=== PATIENT | female | born 1965 | race Caucasian/White ===

== ENCOUNTER 2017-07-06 14:24 | Emergency (ER) | payer OTHER ==
[~2017-07-06] VITALS: Ht 157.5 cm; Wt 70.2 kg
[2017-07-06 14:39] VITALS: Ht 157.5 cm; Wt 70.2 kg
[2017-07-06] MEDS ORDERED: LIDOCAINE 1% (MDV) 20 ML INJ SC ONE (16:00)
[2017-07-06] MEDS ORDERED: IBUP-1542 PO (16:59)
--- NOTE | 2017-07-06 17:55 | ERD ---
ER Documentation Chief Complaint Chief Complaint pt bib family with c/o right thumb lac HPI 51-year-old female presented ED with laceration of her right hand. Patient stated that she was washing glass teapot at home, that he broke and cut her hand. The bleeding has been minimal. She had Tdap done 3 years ago. Patient is right-hand dominant. Denies any medical history. Denies any other injuries. ROS All systems reviewed and are negative except as per history of present illness. Medications Home Meds Active Scripts Ibuprofen* (Motrin*) 600 Mg Tab, 600 MG PO Q6H Y for PAIN AND OR ELEVATED TEMP, #30 TAB Prov:JERRELL BRODERICK. WRITING MANAGER 07/06/17 Allergies Allergies: Coded Allergies: No Known Allergy (Unverified , 09/24/13) PMhx/Soc Medical and Surgical Hx: pt denies Medical Hx, pt denies Surgical Hx Hx Alcohol Use: No Hx Substance Use: No Hx Tobacco Use: No Smoking Status: Never smoker Physical Exam Vitals Vital Signs Date Time Temp Pulse Resp B/P Pulse Ox O2 Delivery O2 Flow Rate FiO2 07/06/17 14:39 97.3 72 20 109/51 100 Physical Exam General: Well-developed, well-nourished, conscious and coherent, in no distress Skin: Warm and dry without rash, good texture and turgor Head: Normocephalic without evidence of trauma Eyes: Sclera and conjunctivae normal; pupils equal, round, and reactive to light; extraocular movements are intact Chest: Normal AP diameter. Good expansion without retractions. Nontender. Lungs are clear to auscultate bilaterally with good tidal volume Heart: Regular rate and rhythm. No murmur, rub, or gallops heard Extremities: A 3 cm laceration noted at the base of the right thumb, in the webbing space between the thumb and index finger. No active bleeding. Full range of motion. Good strength bilaterally. No clubbing, cyanosis, or edema. Peripheral pulses are intact. Sensation intact Neuro: Alert and oriented 4, GCS 15. Cranial nerves grossly intact. Motor and sensory exams nonfocal. Moves all extremities. Speech clear. Gait normal Results 24 hrs Current Medications Medications (Trade) Dose Ordered Sig/Raheel Route PRN Reason Start Time Stop Time Status Last Admin Dose Admin Lidocaine (Xylocaine 1% (Mdv) 20 ml) 20 ml ONCE ONCE SC 07/06/17 16:00 07/06/17 16:01 DC Procedures/MDM Procedure note: laceration repair Verbal consent was obtained for the laceration repair. The wound was copiously irrigated. Local anesthesia was provided using percent lidocaine. After appropriate anesthesia, the area was explored under a bloodless field. Full range of motion of the joint above and below the injury was noted. No foreign body, deep structure or tendon involvement was noted. Closure was achieved with 4 interrupted sutures using 4-0 Ethilon. Good cosmetic and hemostatic results were obtained with the closure. The wound was then cleaned and a dressing was applied. She is tetanus is up-to-date, Tdap not given. Patient advised to follow-up in the ED in 2 days for wound check. Departure Diagnosis: Primary Impression: Laceration Condition: Stable Patient Instructions: Laceration, Hand Referrals: CHRISTIANO MOLINA (PCP) Additional Instructions: Return to this facility in 2 DAYS for a follow-up exam.Return sooner if your condition worsens. Follow up with your physician to remove the stitches:For Face wounds 5-7 days.For Elsewhere on the body 7-10 days. JERRELL BRODERICK NP Jul 06, 2017 17:55
== END 2017-07-06 17:05 | disposition home or self-care (01) ==
LOC: FTE 14:24
DX: S61.011A Laceration without foreign body of right thumb without damage to nail, initial encounter (principal); W25.XXXA Contact with sharp glass, initial encounter; Y92.9 Unspecified place or not applicable
CPT/HCPCS: 12002; Z7502; Z7610

== ENCOUNTER 2017-07-11 17:27 | Emergency (ER) | payer OTHER ==
[~2017-07-11] VITALS: Wt 69.2 kg
[~2017-07-11 17:27] MED LIST: IBUP-1542 PO
--- NOTE | 2017-07-11 19:06 | ERD ---
ER Documentation Chief Complaint Chief Complaint HPI This 51-year-old female presented for removal of sutures from her hand from a laceration sustained a week ago. In the webspace of her thumb. She states that she has great mobility of her hand and does not have pain at the site. ROS All systems reviewed and are negative except as per history of present illness. Medications Home Meds Active Scripts Ibuprofen* (Motrin*) 600 Mg Tab, 600 MG PO Q6H Y for PAIN AND OR ELEVATED TEMP, #30 TAB Prov:JERRELL BRODERICK Radha OBJECTS CONSERVATOR 07/06/17 Allergies Allergies: Coded Allergies: No Known Allergy (Unverified , 09/24/13) PMhx/Soc Medical and Surgical Hx: pt denies Medical Hx, pt denies Surgical Hx Hx Alcohol Use: No Hx Substance Use: No Hx Tobacco Use: No Smoking Status: Never smoker Physical Exam Vitals Vital Signs Date Time Temp Pulse Resp B/P Pulse Ox O2 Delivery O2 Flow Rate FiO2 07/11/17 17:30 98.0 91 20 117/51 100 Physical Exam Const: [] No distress Ext: No cyanosis, or edema, well-healed laceration to web space of hand, [address] Neur: Awake and alert and oriented 3, great sensation to all fingers and palm. Capillary refill less than 1 second Psych: Normal Mood and Affect Procedures/MDM Suture removal note, webspace of right hand: 4 simple interrupted sutures recently removed using suture removal kit after wiping with alcohol. No dehiscence of wound. Patient taught procedure with no complications. Simple suture removal. Primary care follow-up in 2 3 days and return precautions. Departure Diagnosis: Primary Impression: Encounter for removal of sutures Condition: Stable Patient Instructions: Suture Removal, No Complication Referrals: CHRISTIANO MOLINA (PCP) Additional Instructions: Call your primary care doctor TOMORROW for an appointment during the next 2-3 days.See the doctor sooner or return here if your condition worsens before your appointment time. LIZA ARENAS DO Jul 11, 2017 19:06
== END 2017-07-11 19:10 | disposition home or self-care (01) ==
LOC: FTE 17:27
DX: Z48.02 Encounter for removal of sutures (principal)
CPT/HCPCS: 99281

== ENCOUNTER 2017-08-08 00:31 | Emergency (ER) | payer OTHER ==
[~2017-08-08] VITALS: Ht 162.6 cm; Wt 70.3 kg
[2017-08-08 00:35] VITALS: Ht 162.6 cm; Wt 70.3 kg
[2017-08-08] MEDS ORDERED: CEPH-443 PO (04:08)
[2017-08-08] MEDS ORDERED: IBUP-1542 PO (04:08)
--- NOTE | 2017-08-08 04:28 | ERD ---
ER Documentation Chief Complaint Chief Complaint laceration left wrist while cutting fruit HPI 51-year-old female presents here to emergency department for complaints of a left wrist/forearm laceration wound after accidentally cutting it while cutting up through the night. Patient's complaint of pain, sharp pain 4/10 scale, as was upon touching the area, bleeding has been controlled at this time. Patient does not have any difficulty movement of the left wrist. Patient did not take any medication for pain. Patient has up-to-date immunization for tetanus. ROS All systems reviewed and are negative except as per history of present illness. Medications Home Meds Active Scripts Ibuprofen* (Motrin*) 600 Mg Tab, 600 MG PO Q6H Y for PAIN AND OR ELEVATED TEMP, #30 TAB Prov:JAIME ESCOBAR PAINTER INTERIOR FINISH 08/08/17 Cephalexin* (Keflex*) 500 Mg Capsule, 500 MG PO QID for 5 Days, CAP Prov:JAIME ESCOBAR PAINTER INTERIOR FINISH 08/08/17 Ibuprofen* (Motrin*) 600 Mg Tab, 600 MG PO Q6H Y for PAIN AND OR ELEVATED TEMP, #30 TAB Prov:JERRELL BRODERICK PAINTER INTERIOR FINISH 07/06/17 Allergies Allergies: Coded Allergies: No Known Allergy (Unverified , 09/24/13) PMhx/Soc Last tetanus immunization was 4 years ago Medical and Surgical Hx: pt denies Medical Hx, pt denies Surgical Hx Hx Alcohol Use: No Hx Substance Use: No Hx Tobacco Use: No Smoking Status: Never smoker FmHx Family History: No coronary disease, No diabetes, No other Physical Exam Vitals Vital Signs Date Time Temp Pulse Resp B/P Pulse Ox O2 Delivery O2 Flow Rate FiO2 08/08/17 00:35 97.8 64 20 150/84 100 Physical Exam GENERAL: The patient is well developed and appropriate for usual state of health, in no apparent distress. CHEST: Clear to auscultation bilaterally. There are no rales, wheezes or rhonchi. HEART: Regular rate and rhythm. No murmurs, clicks, rubs or gallops. No S3 or S4. ABDOMEN: Soft, nontender and nondistended. Good bowel sounds. No rebound or guarding. No gross peritonitis. No gross organomegaly or masses. No Mak sign or McBurney point tenderness. BACK: No midline or flank tenderness. EXTREMITIES: Equal pulses bilaterally. There is no peripheral clubbing, cyanosis or edema. No focal swelling or erythema. Full range of motion. Grossly neurovascularly intact. NEURO: Alert and oriented. Cranial nerves 2-12 intact. Motor strength in all 4 extremities with 5/5 strength. Sensation grossly intact. Normal speech and gait. SKIN: 1 cm laceration wound, superficial noted in the left forearm, and the level of the left wrist area, is not in the joint area, no tendon involvement, involves only the epidermal and dermal layer. There is no apparent rash or petechia. The skin is warm and dry. HEMATOLOGIC AND LYMPHATIC: There is no evidence of excessive bruising or lymphedema. No gross cervical, axillary, or inguinal lymphadenopathy. Procedures/MDM Procedure Note: After obtaining informed consent, the wound was irrigated with 250 ml of normal saline and cleaned with diluted betadine and Steri-Strips. Using aseptic technique, the wound was approximated using a dermabond. After the procedure, the wound was well approximated. Patient tolerated procedure well. Medical decision making: Patient is a laceration when in the forearm which was easily approximated. No symptoms of any joint involvement, no tendon involvement. No foreign body noted on the affected area. Patient is up-to- date immunization for tetanus. Patient was given Keflex to prevent infection, ibuprofen for pain, was advised to do a wound check in 2 days, avoid wetting the area, keep the area dry for at least 7-10 days. Patient was advised to return to emergency department for any worsening symptoms. Disposition: Home. Stable Departure Diagnosis: Primary Impression: Forearm laceration Encounter type: initial encounter Laterality: left Qualified Code: S51.812A - Laceration of left forearm, initial encounter Condition: Stable Patient Instructions: Laceration, Extremity (Skin Glue) JAIME ESCOBAR NP Aug 08, 2017 04:28
== END 2017-08-08 04:51 | disposition home or self-care (01) ==
LOC: FTE 00:31
DX: S51.812A Laceration without foreign body of left forearm, initial encounter (principal); W26.8XXA Contact with other sharp object(s), not elsewhere classified, initial encounter; Y92.9 Unspecified place or not applicable
CPT/HCPCS: 12001; Z7502

== ENCOUNTER 2018-12-17 08:55 | Day surgery (SDC) | payer OTHER ==
[2018-12-14 17:34] VITALS: Ht 162.6 cm; Wt 63.5 kg
--- NOTE | 2018-12-16 17:34 | HP ---
DATE OF ADMISSION: 12/17/2018 HISTORY: A 53-year-old female patient with recurrent scalp masses seen in the office 06/2018, noted to have multiple inclusion cysts involving the scalp, now admitted to the hospital for elective surgi shreya excision. PAST MEDICAL HISTORY, ALLERGIES, MEDICAL CONDITIONS, DAILY MEDICATIONS, CLOTTING DISORDERS, FAMILY HI STORY, REVIEW OF SYSTEMS: Negative. PAST SURGICAL HISTORY: See HPI. HABITS: Alcohol, tobacco, recreational drugs: None. PHYSICAL EXAMINATION: GENERAL: Well-developed, well-nourished female patient in no acute distress. HEAD: Normocephalic. No masses or deformities. 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 Ears and tympanic membranes are normal. NOSE: Clear. OROPHARYNX: Clear. NECK: No masses or adenopathy. CHEST: Clear to P and A. HEART: Regular sinus rhythm without murmur. ABDOMEN: Soft, bowel sounds normal. No masses or megaly. EXTREMITIES: Full range of motion without deformity. NEUROLOGIC: Physiologic. PELVIC AND RECTAL: Not done. IMPRESSION: Scalp cystic lesions. RECOMMENDATIONS: Admit for surgery. Dictated By: INA BARKER MD SC/NTS Conf#: [id number] DID#: [id number]
[~2018-12-17] VITALS: Ht 162.6 cm; Wt 63.5 kg
[2018-12-17] VITALS (8 sets, daily range): BP systolic 103–135; BP diastolic 49–65; PULSE 48–70; RESP 14–24
[~2018-12-17 08:55] MED LIST changes: +CEPH-443 PO
--- NOTE | 2018-12-17 12:06 | PREAC ---
Date/Time of Note Date/Time of Note DATE: 12/17/18 TIME: 12:04 Anesthesia Eval and Record Evaluation Time Pre-Procedure Interview DATE: 12/17/18 TIME: 12:04 Age 53 Sex female NPO: 8 hrs Preoperative diagnosis multiple scalp lesions Planned procedure excision of multiple scalp lesions Past Medical History Past Medical History: None Surgery & Anesthesia Issues No known issue Meds Anticoagulation: No Beta Radha within 24 hr: No Reason Beta Radha not given: Pt. not on B-Radha Discontinued Scripts Ibuprofen* (Motrin*) 600 Mg Tab, 600 MG PO Q6H PRN for PAIN AND OR ELEVATED TEMP, #30 TAB Prov:JAIME ESCOBAR PUMP SERVICER HELPER 08/08/17 Cephalexin* (Keflex*) 500 Mg Capsule, 500 MG PO QID for 5 Days, CAP Prov:JAIME ESCOBAR PUMP SERVICER HELPER 08/08/17 Ibuprofen* (Motrin*) 600 Mg Tab, 600 MG PO Q6H PRN for PAIN AND OR ELEVATED TEMP, #30 TAB Prov:JERRELL BRODERICK PUMP SERVICER HELPER 07/06/17 Meds reviewed: Yes Allergies Coded Allergies: No Known Allergy (Unverified , 12/17/18) Allergies Reviewed: Yes Labs/Studies Labs Reviewed: Reviewed by anesthesiologist test: N/A Pre-procedure Exam Last vitals Vital Signs Date Temp Pulse Resp B/P (MAP) Pulse Ox O2 O2 Flow FiO2 Time Delivery Rate 12/17/18 97.8 68 20 110/58 100 Room Air 11:42 (75) Airway: Adequate mouth opening, Adequate thyromental dist Mallampati: Mallampati II Teeth: Normal Lung: Normal Heart: Normal ASA Physical Status ASA physical status: 1 Emergency: None Planned Anesthetic General/MAC: LMA Planned Pain Management Parenteral pain med Pre-operative Attestations Prior to commencing anesthesia and surgery, the patient was re-evaluated, there was verification of: *The patient's identity *The results of appropriate recent lab work and preoperative vital signs *The above evaluation not changing prior to induction *Anesthetic plan, risk benefits, alternative and complications discussed with patient/family; questions answered; patient/family understands, accepts and wishes to proceed. NATA BARTON Dec 17, 2018 12:06
[2018-12-17] MEDS ORDERED: FENTAnyl 50 MCG/ML VIAL ONE (12:10)
[2018-12-17] MEDS ORDERED: PROPOFOL 100 ML ONE (12:10)
[2018-12-17] MEDS ORDERED: LIDOCAINE 2% (SDV) 5 ML INJ ONE (12:11)
[2018-12-17] MEDS ORDERED: LIDOCAINE 1%/EPI (1:100,000) (MDV) 20 ML ONE (12:11)
[2018-12-17] MEDS ORDERED: ROCURONIUM 50 MG INJ ONE (12:41)
[2018-12-17] MEDS ORDERED: GLYCOPYRROLATE 0.4 MG INJ ONE (13:19)
[2018-12-17] MEDS ORDERED: NEOSTIGMINE 3 MG/3 ML SYRINGE ONE (13:19)
[2018-12-17] MEDS ORDERED: FENTAnyl 50 MCG/ML VIAL IV PRN ×3 (13:30)
[2018-12-17] MEDS ORDERED: KETOROLAC 30 MG INJ IV PRN (13:30)
[2018-12-17] MEDS ORDERED: hydrALAzine 20 MG INJ IV PRN (13:30)
[2018-12-17] MEDS ORDERED: ALBUTEROL 0.083% (NEB) 2.5 MG/3 ML AMP HHN PRN (13:30)
[2018-12-17] MEDS ORDERED: MEPERIDINE 25 MG INJ IV PRN (13:30)
[2018-12-17] MEDS ORDERED: ONDANSETRON 4 MG INJ IV PRN (13:30)
[2018-12-17] MEDS ORDERED: EPHEDrine SULFATE 50 MG/5 ML SYG IV PRN (13:30)
[2018-12-17] MEDS ORDERED: DIPHENHYDRAMINE 50 MG INJ IV PRN (13:30)
[2018-12-17] MEDS ORDERED: LABETALOL HCL 20MG INJ IV PRN (13:30)
[2018-12-17] MEDS ORDERED: METOCLOPRAMIDE 10 MG INJ IV PRN (13:30)
[2018-12-17] MEDS ORDERED: OXYCODONE/ACETAMINOPHEN (5/325) TAB PO PRN ×2 (13:30)
--- NOTE | 2018-12-17 13:32 | PAC ---
Date/Time of Note Date/Time of Note DATE: 12/17/18 TIME: 13:31 Post-Anesthesia Notes Post-Anesthesia Note Last documented vital signs Vital Signs Date Temp Pulse Resp B/P (MAP) Pulse Ox O2 O2 Flow FiO2 Time Delivery Rate 12/17/18 97.8 68 20 110/58 100 Room Air 1332 (75) Activity: WNL Respiratory function: WNL Cardiovascular function: WNL Mental status: Baseline Pain reasonably controlled: Yes Hydration appropriate: Yes Nausea/Vomiting absent: Yes NATA BARTON Dec 17, 2018 13:32
--- NOTE | 2018-12-17 13:38 | SIPON ---
Date/Time of Note Date/Time of Note DATE: 12/17/18 TIME: 13:36 Operative Report Preoperative Diagnosis multiple scalp tumors Postoperative Diagnosis same Operation/Procedure Performed exccisions scalp tumore wiith advance flap closure Surgeon carole signature line contact center assistant none Anesthesia: general Estimated blood loss: 0 - 10 ml's Transfusion Required none Specimen to path Grafts/Implants none Complications none INA BARKER MD Dec 17, 2018 13:37
--- NOTE | 2018-12-19 13:38 | OPR ---
DATE OF OPERATION: PREOPERATIVE DIAGNOSIS: Multiple scalp tumors. POSTOPERATIVE DIAGNOSIS: Multiple scalp tumors. PROCEDURE PERFORMED: Removal of multiple scalp tumors with advancement flap reconstruction. DESCRIPTION OF PROCEDURE: The patient was brought to the operating room under parenteral sedation, g eneral oroendotracheal anesthesia with the patient in the supine position. The area about 3 large cy stic lesions in the frontal scalp region were prepped and draped after shaving an appropriate amount of hair. There were 3 large lesions noted, the largest of which was approximately 2.2 cm, 2 cm and 1 .8 cm. The area about the cystic lesions was localized with Xylocaine 1% epinephrine 1:100,000 for l ocal anesthesia and hemostasis. These appeared to either be epidermoid inclusion cyst or possibly mu ltiple cystic lesions secondary to hair follicle growth. The area about the 1.8 cm lesion was outlin ed with methylene blue and elliptical surgical excision was carried out down to the pericranium. Ble eding points were electrocoagulated for hemostasis. A similar procedure was performed for removal of the 2 cm lesion. It was again outlined with methylene blue, incised and excised down to pericranium and removed from the operative field. Bleeding points were electrocoagulated for hemostasis. The l argest of the lesions was then outlined with methylene blue, incised and excised down to pericranium and removed. The first 2 excision sites were undermined and closed primarily with multiple 4-0 silk suture. The largest of the 3 lesions however required an advancement flap for closure. The area for advancement was widely undermined after instilling for the local anesthesia. Back cuts were made an d the advancement flap was undermined. Hemostasis was achieved with Bovie cautery. Small Burow's tr iangles were excised at the distal end of the advancement flap incisions for proper closure. The fla p was then advanced and secured in place with multiple 3-0 chromic sutures to the subcutaneous tissue and multiple 4-0 silk to the flap. The Burow's triangles were closed with multiple 5-0 silk suture. This completed the surgical procedure. The surgical field was dry. Light dressing was applied. T he patient was awakened and extubated in the operating room and returned to recovery in excellent con dition. ESTIMATED BLOOD LOSS: Approximately 10 to 15 mL for the combined procedures. Dictated By: INA HALEY/CAITLIN Conf#: [id number] [facility]#: [id number] CC: KIRSTIN LEWIS DPM;*EndCC*
== END 2018-12-17 15:15 | disposition home or self-care (01) ==
LOC: SDS 08:55
PROVIDERS: ATTEND Otolaryngology Otolaryngology/Facial Plastic Surgery
DX: L72.11 Pilar cyst (principal)
CPT/HCPCS: 14020; 88305; J2710; J3010; Z7512; Z7610